=== PATIENT | female | born 1995 | race Caucasian/White ===

== ENCOUNTER 2023-01-28 08:57 | Emergency (ER) | payer MEDICAID, SELFPAY ==
[2023-01-28] MEDS ORDERED: Dexamethasone 4 mg/ml Vial ONE (09:18)
== END 2023-01-28 09:50 | disposition home or self-care (01) ==
LOC: NAV ERS 08:57
DX: J02.9 Acute pharyngitis, unspecified (principal)
CPT/HCPCS: 87081; 87430; 99283; J1100